=== PATIENT | female | born 1995 | race Caucasian/White ===

== ENCOUNTER 2019-08-10 11:07 | Emergency (ER) | payer MEDICAID, SELFPAY ==
[~2019-08-10] VITALS: Ht 167.6 cm; Wt 111.1 kg
[2019-08-10 11:24] VITALS: BP 136/99
--- NOTE | 2019-08-10 11:31 | NUR ---
24/F C/O FEVER, BODY ACHE, HEADACHE X 2 DAYS. BEST FRIEND COVID +. TEMP 101 & TOOK TYLENOL AT 3 AM TODAY. TEMP 98.2 , P 77, O2 SAT 97% AT THIS TIME. MED HX: APPENDECTOMY, RECTAL SURGERY
--- NOTE | 2019-08-10 12:50 | NUR ---
COVID SWAB DONE. SENT TO LAB.
--- NOTE | 2019-08-10 13:04 | NUR ---
Patient discharged with v/s stable. Written and verbal after care instructions given and explained. Patient alert, oriented and verbalized understanding of instructions. Ambulatory with steady gait. All questions addressed prior to discharge. ID band removed. Patient advised to follow up with PMD. Rx of GUAIFENESIN, NAPROSYN & ALBUTEROL given. Patient educated on indication of medication including possible reaction and side effects. Opportunity to ask questions provided and answered.
[2019-08-10 13:06] VITALS: BP 136/99
== END 2019-08-10 13:04 | disposition home or self-care (01) ==
LOC: EDSEX 11:07 → EEVIPCON 11:07 → MED 11:07
DX: R50.9 Fever, unspecified (principal); Z88.8 Allergy status to other drugs, medicaments and biological substances; Z90.49 Acquired absence of other specified parts of digestive tract; Z98.890 Other specified postprocedural states; Z20.828 Contact with and (suspected) exposure to other viral communicable diseases
CPT/HCPCS: 71045; 99284; U0003